=== PATIENT | male | born 1935 | race Caucasian/White ===

== ENCOUNTER 2017-06-04 14:16 | Inpatient (IN) | payer OTHER ==
[~2017-06-04] VITALS: Ht 180.3 cm; Wt 104.4 kg
--- NOTE | ~2017-06-04 | P ---
[facility] [place] [address] PROCEDURE REPORT Name: TANVIRMERLENECAPRI Garrett Room #: 431-P [facility] IN M.R.#: [id number] Admission: 06/04/17 Attend Phys: Elba Tamayo Discharge: 06/11/17 Date of : 35 Report #: [id number] THIS REPORT FOR: //name// CC: Kvng Rodriguez MD DATE OF SERVICE: 06/07/2017 PROCEDURE PERFORMED: ERCP with sphincterotomy and stone removal. HISTORY OF PRESENT ILLNESS: The patient is an 82-year-old male who presents with nausea, vomiting, abdominal pain, elevated liver function tests. He was diagnosed with acute pancreatitis with lipase of 6156 on 06/04/2017. His bilirubin was a max of 6.6, today is 4.8. He underwent an ultrasound of the abdomen initially on 06/04/2017, which showed multiple gallstones and debris within the gallbladder. He then underwent a CT scan of the abdomen and pelvis on 06/06/2017, which showed cholelithiasis with choledocholithiasis and associated pancreatitis. There is no intrahepatic or extrahepatic bile duct dilation identified, 2 cm pseudocyst along the anterior aspect of the junction of the body and tail of the pancreas. Plan is for ERCP. DESCRIPTION OF PROCEDURE: The risks and benefits of the procedure were explained to the patient, those risks including but not limited to bleeding, perforation, the risk of sedation as well as potential risk for post-ERCP pancreatitis. He understood these risks and gave informed consent. The procedure was performed under general anesthesia in the interventional radiology suite. The patient was given 1 gram of Ancef prior to the procedure as well as 50 mg indomethacin suppository rectally. Next, using a standard Onarborinon side-viewing ERCP scope, the scope was placed in the patient's mouth and advanced under direct vision through the esophagus, stomach and into the second portion of the duodenum. The major papilla was identified which was normal in appearance. There was evidence of bile drainage. Next, using a Jose-Hashable 0.025 dome-tipped catheter, the common bile duct was cannulated without difficulty and a cholangiogram was obtained. There were several filling defects noted consistent with choledocholithiasis. Common bile duct is minimally dilated. Intrahepatic ducts were normal. The cystic duct did fill. At this point, a guidewire was advanced into the anterior hepatic ducts and a sphincterotomy was performed without difficulty. Next, the catheter was removed and a balloon catheter was advanced over the guidewire and several balloon sweeps were then performed. A total of 4 dark black stones were removed. Further sweeps revealed no further stones. At this point, a balloon occlusion cholangiogram was obtained. No further filling defects were noted. The scope was then withdrawn and the procedure terminated. The patient tolerated the procedure well. [address] [address] PROCEDURE REPORT Name: CAPRI ZAMORANO Room #: 431-P DIS IN M.R.#: [id number] Admission: 06/04/17 Attend Phys: Elba Tamayo Discharge: 06/11/17 Date of : 35 Report #: [id number] IMPRESSION: 1. Choledocholithiasis, status post sphincterotomy with removal for stones today. 2. Normal intrahepatics. RECOMMENDATIONS: 1. Observe the patient post-procedure. 2. Clear liquids tonight, then n.p.o. after midnight. The patient is scheduled for laparoscopic cholecystectomy tomorrow. Thank you for allowing me to participate in his care. <ELECTRONICALLY SIGNED> By: Kvng Hoyos MD 07/10/17 1234 1742 1822 Kvng Hoyos MD /nt
--- NOTE | ~2017-06-04 | S ---
[facility] [place] [place] [address] SURGICAL PATH RPT PROCEDURE Name: CAPRI ISABEL Room #: 431-P DIS IN M.R.#: [id number] Admission: 06/04/17 Date of : 35 Discharge: 06/11/17 Report #: [id number] Path Case #: [id number] PATHOLOGY REPORT COLLECTION DATE: 06/08/2017 RECEIVED DATE: 06/09/2017 SUBMITTING PHYS: Dr. Musa Mehta OTHER PHYS: Dr. Elba Rodriguez SPECIMEN(S) RECEIVED: A.Gallbladder * * * * * * * * * * * * FINAL DIAGNOSIS: Gallbladder, cholecystectomy: - Moderate acute and chronic cholecystitis. - Cholelithiasis. PATHOLOGIST: Sapphire Quiroz M.D. REPORT ELECTRONICALLY SIGNED BY: Sapphire Quiroz M.D. DATE/TIME: 06/12/2017 14:57 * * * * * * * * * * * * GROSS PATHOLOGY: Received in formalin labeled "Capri Isabel, gallbladder," is a 5.5 x 2.3 x 2.2 cm, previously opened and torn gallbladder with white to green and ragged serosal surfaces. Opening the gallbladder reveals silverman to brown velvety mucosa and an average wall thickness of 0.2 cm. Calculi are present, dark green, friable and range in size from 0.1 to 0.8 cm in maximum dimensions. No masses are noted grossly. Tire Mechanic sections from the body and fundus are submitted along with the proximal margin in cassette A1. (JEFFERY; 06/11/2017) CLINICAL HISTORY: Obstructive jaundice, pancreatitis INITIAL CPT CODE(S): A; 71773 Professional services performed by [facility] at [facility] [address] , [place] [address] Technical services performed by [facility] at [address] [place] [address] [address] [place] [address] SURGICAL PATH RPT PROCEDURE Name: CAPRI ISABEL Room #: 431-P DIS IN M.R.#: [id number] Admission: 06/04/17 Date of : 35 Discharge: 06/11/17 Report #: [id number] Path Case #: [id number] [place] [address]. Dr. Rodney Trevizo [facility] [id number] [address] PHONE: [phone] DIRECTOR: Edmundo Paul M.D. * * * END OF REPORT * * *
--- NOTE | ~2017-06-04 | EKG ---
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
--- NOTE | ~2017-06-04 | HC ---
[facility] [place] [address] CONSULTATION Name: CAPRI ZAMORANO Room #: 431-P [facility] IN ..#: [id number] Admission: 06/04/17 Attend Phys: Elba Tamayo Discharge: 06/11/17 Date of : 35 Report #: [id number] THIS REPORT FOR: //name// CC: Elba Rodriguez DATE OF SERVICE: 06/05/2017 DATE OF ADMISSION: 06/04/2017 DATE OF CONSULTATION: 06/05/2017 HISTORY OF PRESENT ILLNESS: I have been asked to evaluate this 82-year-old male who presented to the Emergency Department complaining of abdominal pain that began approximately 3 days prior to admission. The pain was intense. The patient had an episode of vomiting, which gave him some temporary relief. He described his abdominal pain as feeling full and radiating into his back. The patient also was reported by his to have a temperature of 101 degrees Fahrenheit. The patient was unable to see his urologist for a few weeks to the point and was advised to come to the Emergency Department. The patient complained of the abdominal pain associated with the pain radiating into his back. The patient had worsening of his pain with drinking of fluids. His past medical history is consistent with urological consultation and follow up by . The patient has had an appendectomy. He has had knee replacement approximately one year ago, he has had atrial fibrillation, currently on Pradaxa from Dr. Dariel Mak. ALLERGIES: No known drug allergies. MEDICATIONS: Were multiple. Coreg, Pradaxa, Lanoxin, Zocor, Flomax, Demadex, Mobic, potassium chloride, Prilosec and Nova as well as Lasix. PAST SURGICAL HISTORY: As reported, ankle fracture repair, hernia repair x 2 and his appendectomy. PAST MEDICAL HISTORY: Medical illnesses included hypertension, arthritis, hypercholesterolemia, and bursitis. SOCIAL HISTORY: and lives with his , does not use tobacco, alcohol use occasional and weekly basis. REVIEW OF SYSTEMS: His 10 point review of systems is noncontributory except for the change in gastrointestinal function. PHYSICAL EXAMINATION: GENERAL: Reveals a patient who is alert, cooperative, mild distress. [address] [address] CONSULTATION Name: CAPRI ZAMORANO Room #: 431-P [facility] IN M.R.#: [id number] Admission: 06/04/17 Attend Phys: Elba Tamayo Discharge: 06/11/17 Date of : 35 Report #: [id number] HEENT: No scleral icterus is noted. Pupils reactive to light and accomodation. CARDIOVASCULAR: Regular rate and rhythm. LUNGS: Clear to bases bilaterally. ABDOMEN: Mild tenderness in the epigastrium. No palpable masses. NEUROLOGIC: He is oriented x 3, bilateral motor symmetry. LABORATORY DATA: Review of the patient's laboratory demonstrates elevation of the patient's total bilirubin. His lipase is elevated. Liver function tests are also elevated. His ultrasound is consistent with thickened gallbladder wall and multiple stones. DIAGNOSTIC IMPRESSION: 1. Acute cholecystitis with cholelithiasis and possible choledocholithiasis. I would recommend CT scan to evaluate the extrahepatic bile ducts and pancreas since the patient has an AICD device present and cannot tolerate and MRI. We will follow him with you. Thank you for allowing us to participate in his care. <ELECTRONICALLY SIGNED> By: Musa Mehta MD, FACS 06/12/17 0802 1438 1909 Musa Mehta MD, FACS /nt
--- NOTE | ~2017-06-04 | O ---
[facility] [place] [place] [address] OPERATIVE REPORT Name: CAPRI ZAMORANO Garrett Room #: 431-P [facility] IN M.R.#: [id number] Admission: 06/04/17 Attend Phys: Elba Tamayo Discharge: Date of : 35 Report #: [id number] THIS REPORT FOR: //name// CC: Elba Rodriguez MD DATE OF SERVICE: 06/08/2017 PREOPERATIVE DIAGNOSES: Acute cholecystitis with cholelithiasis, biliary pancreatitis and choledocholithiasis. POSTOPERATIVE DIAGNOSES: Acute cholecystitis with cholelithiasis, biliary pancreatitis and choledocholithiasis. OPERATIVE PROCEDURES: Laparoscopic cholecystectomy with intraoperative cholangiogram and irrigation and flushing of common bile duct. SURGEON: Musa Mehta MD. MOTH PROOFER: Rodney Trevizo DO. SECOND SERVICES ACCOUNT MANAGER: Pat Diez MS4. INDICATIONS: An 82-year-old male who presented with abdominal pain which was diagnosed as biliary pancreatitis. The patient was found by CT scan to have common duct stones. He underwent a satisfactory ERCP and now has been cleared for definitive laparoscopic cholecystectomy with intraoperative cholangiogram. The biliary pancreatitis has resolved. DESCRIPTION OF PROCEDURE: The patient had a thorough discussion of the procedure, benefits and risks. He gave informed consent to proceed. He was on an antibiotic regimen. He was brought to the operating room suite and had satisfactory induction of general endotracheal anesthesia. His AICD had a magnet placed over it during the procedure. Sterile prep and paint of the entire abdomen was performed. After draping was completed, an appropriate timeout was then performed. A 0.5% plain Naropin was utilized at the infraumbilical port site. Open dissection at the infraumbilical port site was performed down to the fascia. Fingertip introduction was performed. Under an open procedure, the 12-mm Uche trocar was then inserted. The balloon was inflated. Pneumoperitoneum was established. The upper 5-mm trocar port and 2 lateral 5-mm trocar ports were then placed under direct vision. The gallbladder was visualized. There were omental adhesions to the inferior aspect of the gallbladder. These were taken down with Sonicision. Dissection was performed in the region of the cystic duct triangle. The cystic duct triangle was clearly delineated. The cystic duct was milked in a retrograde manner. Two clips were [address] [address] OPERATIVE REPORT Name: CAPRI ZAMORANO Room #: 431-P [facility] IN M.R.#: [id number] Admission: 06/04/17 Attend Phys: Elba Tamayo Discharge: Date of : 35 Report #: [id number] placed toward the gallbladder. A cystotomy was performed and the cystic duct was milked in a retrograde manner again. The taut catheter was then inserted into the cystic duct and an intraoperative cholangiogram was performed, demonstrating, after Glucagon was given, free flow of contrast into the duodenum. No filling defects were noted. There was good visualization of the proximal hepatic bile ducts. Irrigation and flushing with saline was performed after the Glucagon was administered. The contrast was evacuated from the biliary ductal system. The taut catheter was removed and a 0 PDS Endoloop was then placed around the cystic duct for control after transection had been completed. Three clips were then placed distal to the Endoloop for visualization and delineation. The cystic artery was identified and doubly clipped and ligated proximally. It was divided with the Sonicision. The gallbladder was dissected from the gallbladder bed. It was tightly adherent to the liver bed. After the gallbladder was resected, demonstrating multiple small bilirubinate stones, it was placed into an Endobag and removed from the peritoneal cavity. An 0 PDS suture was placed in a [id number] fashion at the infraumbilical port site. The port was again introduced and the patient flattened and copious irrigation with saline was performed. Surgicel was placed in the gallbladder bed after hemostasis had been accomplished with the electrocautery. Hemostasis seemed to be complete. A 15-Czech DIEUDONNE drain was brought out from the lateral port site. Smitha was sprayed into the gallbladder bed. All irrigation had been evacuated. Final inspection was completed. The drain was in satisfactory position. The 5-mm trocar ports were removed under direct vision. The 12-mm trocar port at the infraumbilical position was then removed after pneumoperitoneum had been evacuated. The 0 PDS suture was ligated in place. The drain was sutured in place with 2-0 nylon. Skin margins were approximated with subcuticular 4-0 Monocryl. The estimated blood loss for the entire procedure was less than 25 mL. The patient tolerated the procedure well and returned to the recovery room in stable and satisfactory condition. <ELECTRONICALLY SIGNED> By: Musa Mehta MD, FACS 06/11/17 1439 1306 1357 Musa Mehta MD, FACS /nt
[~2017-06-04 14:16] MED LIST: DICLOFENAC SODI75 M1 PO; MISOPROSTOL 2200 MC1 PO; MULTIVITAMINS PO; NORCO 5-325 TA1 EACH PO; OCUVITE TABLET1 EAC1 PO; PRILOSEC 20 MG20 MG PO; TERAZOSIN; VERAPAMIL HCL120 M2 PO; VICOPROFEN 2001 EACH PO; ZOCOR 20 MG TAB20 M1 PO
[2017-06-04 14:17] VITALS: BP 152/74
[2017-06-04 15:15] LABS: HEMATOCRIT 43.5 % (42.0-52.0); HEMOGLOBIN 14.8 gm/dL (14.0-18.0); MCH 29.8 pg (26.0-34.0); MCHC 34.1 g/dL (28.0-37.0); MCV 87.4 fL (80.0-100.0); PLATELET COUNT 150 thou/uL (150-400); RBC 4.98 mil/uL (4.50-6.00); RDW 15.3 % (10.5-14.5); WBC 11.7 thou/uL (4.0-11.0)
[2017-06-04 15:17] LABS: MANUAL DIFF YES
[2017-06-04 15:25] LABS: APTT 35.4 Seconds (24.5-32.8); INR 1.2; PROTIME 11.8 Seconds (9.3-11.4)
[2017-06-04 15:29] LABS: CALCIUM 8.9 mg/dL (8.5-10.1); CREATININE 1.3 mg/dL (0.7-1.3); POTASSIUM 3.7 mmol/L (3.5-5.1)
[2017-06-04 15:36] LABS: ALBUMIN 3.3 g/dL (3.4-5.0); DIGOXIN 1.3 ng/mL (0.9-2.0); DIRECT BILIRUBIN 3.9 mg/dL (<0.1-0.3); TOTAL BILIRUBIN 5.1 mg/dL (<0.1-1.0); TOTAL PROTEIN 7.3 g/dL (6.4-8.2)
[2017-06-04 15:38] LABS: URINE BILIRUBIN NEGATIVE (Negative); URINE BLOOD NEGATIVE (Negative); URINE COLOR YELLOW; URINE GLUCOSE-RANDOM* NEGATIVE (Negative); URINE KETONES NEGATIVE (Negative); URINE LEUKOCYTES-REFLEX NEGATIVE (Negative); URINE PROTEIN (DIPSTICK) NEGATIVE (Negative)
[2017-06-04 15:59] LABS: ABSOLUTE NEUTROPHILS 9.9 thou/uL (1.4-8.2); TOTAL CELL COUNT 100
[2017-06-04] MEDS ORDERED: CARVEDILOL6.25 MG PO (16:26)
[2017-06-04] MEDS ORDERED: PRADAXA150 MG PO (16:26)
[2017-06-04] MEDS ORDERED: DIGOXIN250 MCG PO (16:27)
[2017-06-04] MEDS ORDERED: SIMVASTATIN40 MG PO (16:27)
[2017-06-04] MEDS ORDERED: MOBIC7.5 MG PO (16:28)
[2017-06-04] MEDS ORDERED: FLOMAX0.4 MG PO (16:29)
[2017-06-04] MEDS ORDERED: DEMADEX20 MG PO (16:30)
[2017-06-04] MEDS ORDERED: KLOR-CON M2020 MEQ PO (16:32)
[2017-06-04 17:47] VITALS: BP 140/69
[2017-06-04 17:48] VITALS: BP 140/69
[2017-06-04 18:20] VITALS: BP 146/84
[2017-06-04 20:01] VITALS: BP 127/77
[2017-06-04 22:58] VITALS: BP 153/86
[2017-06-05 04:33] LABS: HEMATOCRIT 38.3 % (42.0-52.0); HEMOGLOBIN 13.1 gm/dL (14.0-18.0); MCH 29.9 pg (26.0-34.0); MCHC 34.2 g/dL (28.0-37.0); MCV 87.6 fL (80.0-100.0); RBC 4.37 mil/uL (4.50-6.00); WBC 8.5 thou/uL (4.0-11.0)
[2017-06-05 04:43] LABS: ALBUMIN 2.6 g/dL (3.4-5.0); CALCIUM 8.3 mg/dL (8.5-10.1); CREATININE 1.4 mg/dL (0.7-1.3); TOTAL BILIRUBIN 6.6 mg/dL (<0.1-1.0); TOTAL PROTEIN 6.2 g/dL (6.4-8.2)
[2017-06-05 04:44] LABS: POTASSIUM 2.9 mmol/L (3.5-5.1)
[2017-06-05 08:59] VITALS: BP 147/92
[2017-06-05 11:36] VITALS: BP 144/84
[2017-06-05 15:00] VITALS: BP 149/90
[2017-06-05 19:28] VITALS: BP 159/90
[2017-06-06 03:43] LABS: HEMATOCRIT 36.8 % (42.0-52.0); HEMOGLOBIN 12.5 gm/dL (14.0-18.0); MCH 29.9 pg (26.0-34.0); MCHC 34.1 g/dL (28.0-37.0); MCV 87.6 fL (80.0-100.0); RBC 4.2 mil/uL (4.50-6.00); RDW 15.2 % (10.5-14.5); WBC 7.7 thou/uL (4.0-11.0)
[2017-06-06 04:03] LABS: ALBUMIN 2.4 g/dL (3.4-5.0); CALCIUM 8.4 mg/dL (8.5-10.1); CREATININE 1.2 mg/dL (0.7-1.3); MAGNESIUM 1.8 mg/dL (1.8-2.4); POTASSIUM 3.3 mmol/L (3.5-5.1); TOTAL BILIRUBIN 6.6 mg/dL (<0.1-1.0)
[2017-06-06 04:12] VITALS: BP 169/89
[2017-06-06 04:17] LABS: TOTAL PROTEIN 6.1 g/dL (6.4-8.2)
[2017-06-06] MEDS ORDERED: LISINOPRIL20 MG PO (05:03)
[2017-06-06 07:42] VITALS: BP 175/100
[2017-06-06 20:13] VITALS: BP 159/93
[2017-06-07 03:55] VITALS: BP 179/103
[2017-06-07 06:17] LABS: ALBUMIN 2.6 g/dL (3.4-5.0); CALCIUM 8.7 mg/dL (8.5-10.1); CREATININE 1.1 mg/dL (0.7-1.3); MAGNESIUM 1.8 mg/dL (1.8-2.4); POTASSIUM 3.6 mmol/L (3.5-5.1); TOTAL BILIRUBIN 4.8 mg/dL (<0.1-1.0)
[2017-06-07 06:37] LABS: TOTAL PROTEIN 6.6 g/dL (6.4-8.2)
[2017-06-07 07:57] VITALS: BP 170/95
[2017-06-07 19:21] VITALS: BP 179/105
[2017-06-07 19:25] VITALS: BP 179/105
[2017-06-07 21:50] VITALS: BP 149/84
[2017-06-07 23:15] VITALS: BP 163/84
[2017-06-08] VITALS (8 sets, daily range): BP systolic 134–178; BP diastolic 79–101
[2017-06-08 05:34] LABS: HEMATOCRIT 36.9 % (42.0-52.0); HEMOGLOBIN 12.2 gm/dL (14.0-18.0); MCH 29.7 pg (26.0-34.0); MCHC 33.2 g/dL (28.0-37.0); MCV 89.5 fL (80.0-100.0); RBC 4.12 mil/uL (4.50-6.00); RDW 15.2 % (10.5-14.5); WBC 6.6 thou/uL (4.0-11.0)
[2017-06-08 06:16] LABS: ALBUMIN 2.5 g/dL (3.4-5.0); CALCIUM 8.6 mg/dL (8.5-10.1); POTASSIUM 3.3 mmol/L (3.5-5.1); TOTAL BILIRUBIN 3.5 mg/dL (<0.1-1.0)
[2017-06-09 04:02] LABS: ALBUMIN 2.4 g/dL (3.4-5.0); CALCIUM 8.1 mg/dL (8.5-10.1); POTASSIUM 3.4 mmol/L (3.5-5.1); TOTAL BILIRUBIN 2.9 mg/dL (<0.1-1.0); TOTAL PROTEIN 6.2 g/dL (6.4-8.2)
[2017-06-09 04:03] LABS: HEMATOCRIT 37.4 % (42.0-52.0); HEMOGLOBIN 12.5 gm/dL (14.0-18.0); MCH 29.8 pg (26.0-34.0); MCHC 33.4 g/dL (28.0-37.0); MCV 89.4 fL (80.0-100.0); RBC 4.18 mil/uL (4.50-6.00); RDW 15.4 % (10.5-14.5); WBC 9.5 thou/uL (4.0-11.0)
[2017-06-09 04:05] VITALS: BP 163/95
[2017-06-09 08:01] VITALS: BP 150/83
[2017-06-09] MEDS ORDERED: HYDROCODONE-APA1 TA1 PO (09:21)
[2017-06-09 16:09] VITALS: BP 150/72
[2017-06-09 20:25] VITALS: BP 131/73
[2017-06-10 03:54] LABS: HEMOGLOBIN 12.4 gm/dL (14.0-18.0); MCHC 33.6 g/dL (28.0-37.0); MCV 89.1 fL (80.0-100.0); RBC 4.15 mil/uL (4.50-6.00); WBC 10.9 thou/uL (4.0-11.0)
[2017-06-10 03:59] LABS: ALBUMIN 2.3 g/dL (3.4-5.0); DIRECT BILIRUBIN 1.4 mg/dL (<0.1-0.3); TOTAL PROTEIN 6.1 g/dL (6.4-8.2)
[2017-06-10 04:22] VITALS: BP 157/78
[2017-06-10 07:50] VITALS: BP 151/78
[2017-06-10 15:42] VITALS: BP 159/81
[2017-06-10 21:00] VITALS: BP 142/77
[2017-06-10 23:56] VITALS: BP 147/76
[2017-06-11 04:33] VITALS: BP 155/84
[2017-06-11 05:55] LABS: ALBUMIN 2.2 g/dL (3.4-5.0); PHOSPHORUS 2.3 mg/dL (2.5-4.9); POTASSIUM 3.2 mmol/L (3.5-5.1)
[2017-06-11 08:34] VITALS: BP 170/87
[2017-06-11 10:47] VITALS: BP 170/87
[2017-06-11 14:54] VITALS: BP 170/87
== END 2017-06-11 16:39 | disposition home health service (06) | DRG 417 ==
LOC: ER 14:16 → EROBS 16:38 → 2N 16:38 → 4E 06-06 11:27
PROVIDERS: Emergency Medicine; Hospitalist; Internal Medicine Gastroenterology; Nurse Practitioner Adult Health; Specialist; Surgery
PROC: 0FC98ZZ Extirpation of Matter from Common Bile Duct, Via Natural or Artificial Opening Endoscopic (ICD-10-PCS; 2017-06-07)
PROC: 0FT44ZZ Resection of Gallbladder, Percutaneous Endoscopic Approach (ICD-10-PCS; principal; 2017-06-08)
PROC: 0WQF4ZZ Repair Abdominal Wall, Percutaneous Endoscopic Approach (ICD-10-PCS; 2017-06-08)
PROC: BF101ZZ Fluoroscopy of Bile Ducts using Low Osmolar Contrast (ICD-10-PCS; 2017-06-08)
DX: K80.42 Calculus of bile duct with acute cholecystitis without obstruction (principal); K85.90 Acute pancreatitis without necrosis or infection, unspecified; K83.1 Obstruction of bile duct; E43 Unspecified severe protein-calorie malnutrition; I48.92 Unspecified atrial flutter; I42.9 Cardiomyopathy, unspecified; I13.0 Hypertensive heart and chronic kidney disease with heart failure and stage 1 through stage 4 chronic kidney disease, or unspecified chronic kidney disease; K42.0 Umbilical hernia with obstruction, without gangrene; N40.0 Benign prostatic hyperplasia without lower urinary tract symptoms; M19.90 Unspecified osteoarthritis, unspecified site; E78.00 Pure hypercholesterolemia, unspecified; E80.6 Other disorders of bilirubin metabolism; E87.6 Hypokalemia; E87.5 Hyperkalemia; N28.1 Cyst of kidney, acquired; I50.9 Heart failure, unspecified; N18.9 Chronic kidney disease, unspecified; Z87.81 Personal history of (healed) traumatic fracture; Z98.41 Cataract extraction status, right eye; Z79.899 Other long term (current) drug therapy; Z90.49 Acquired absence of other specified parts of digestive tract; Z95.0 Presence of cardiac pacemaker; Z68.32 Body mass index [BMI] 32.0-32.9, adult
CPT/HCPCS: 10081; 10783; 50010; 50101; 50249; 50331; 50411; 50555; 50900; 50962; 51297; 51489; 51975; 52265; 52266; 52287; 53307; 53314; 54022; 54118; 55245; 55317; 56462; 56525; 56526; 56639; 62110; 62900; 70005

== ENCOUNTER → 2019-01-14 | Outpatient (CLI) | payer OTHER ==
[~2019-01-14] MED LIST changes: +CARVEDILOL6.25 MG PO; +DEMADEX20 MG PO; +DIGOXIN250 MCG PO; +FLOMAX0.4 MG PO; +HYDROCODONE-APA1 TA1 PO; +KLOR-CON M2020 MEQ PO; +LISINOPRIL20 MG PO; +MOBIC7.5 MG PO; +PRADAXA150 MG PO; +SIMVASTATIN40 MG PO
== END ==
LOC: RAD 14:58
DX: I51.7 Cardiomegaly (principal); R05 Cough

== ENCOUNTER 2019-01-15 11:46 | Inpatient (IN) | payer OTHER ==
[~2019-01-15] VITALS: Ht 177.8 cm; Wt 106.0 kg
[2019-01-15 11:47] VITALS: BP 158/92
[2019-01-15 12:45] LABS: ABSOLUTE NEUTROPHILS 6.1 thou/uL (1.4-8.2); BASOPHILS 0.2 % (0.0-2.0); HEMATOCRIT 42.9 % (42.0-52.0); HEMOGLOBIN 14.6 gm/dL (14.0-18.0); LYMPHOCYTES 6.9 % (24.0-44.0); MCH 30.6 pg (26.0-34.0); MONOCYTES 6.7 % (1.0-8.0); POLYS 86.2 % (36.0-66.0); RBC 4.76 mil/uL (4.50-6.00); RDW 14.8 % (10.5-14.5)
[2019-01-15 12:48] LABS: ANION GAP 10 mmol/L (7-16); BUN 20 mg/dL (7-18); CALCIUM 8.4 mg/dL (8.5-10.1); CHLORIDE 99 mmol/L (98-107); CO2 27 mmol/L (21-32); CREATININE 1.5 mg/dL (0.7-1.3); GLUCOSE 130 mg/dL (74-106); POTASSIUM 3.6 mmol/L (3.5-5.1); SODIUM 136 mmol/L (136-145)
[2019-01-15 12:56] LABS: ALBUMIN 3.5 g/dL (3.4-5.0); SGOT 30 U/L (15-37); SGPT 20 U/L (30-65); TOTAL BILIRUBIN 1.1 mg/dL (<0.1-1.0); TOTAL PROTEIN 7.2 g/dL (6.4-8.2); TROPONIN-I <0.06 ng/mL (<0.06)
[2019-01-15 12:58] LABS: URINE BILIRUBIN NEGATIVE (Negative); URINE BLOOD 1+ (Negative); URINE CLARITY CLEAR; URINE COLOR YELLOW; URINE GLUCOSE-RANDOM* NEGATIVE (Negative); URINE KETONES NEGATIVE (Negative); URINE LEUKOCYTES-REFLEX NEGATIVE (Negative); URINE NITRITE-REFLEX NEGATIVE (Negative); URINE PROTEIN (DIPSTICK) NEGATIVE (Negative); URINE UROBILINOGEN 0.2 E.U./dl (0.2-1.0)
[2019-01-15 13:07] LABS: BACTERIA-REFLEX None Seen /HPF (None Seen); CASTS None Seen /LPF (None Seen); CRYSTALS None Seen /LPF (None Seen); MUCUS 0-3 Light strn/LPF (None Seen); SQUAMOUS 0-3 Few /LPF (0-3)
[2019-01-15 13:08] LABS: URINE RBC 0-2 Rare /HPF (0-2); URINE WBC-REFLEX None Seen /HPF (0-5)
[2019-01-15 13:15] LABS: PLATELET COUNT 123 thou/uL (150-400)
--- NOTE | 2019-01-15 17:19 | EKG ---
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 : 1935 Requested By: Emily Evans Order Number: [id number] MD: Uday Mayfield Measurements Intervals Finger Rate: 67 P: OK: QRS: 150 QRSD: 161 T: -4 QT: 422 QTc: 446 Interpretive Statements Afib/flutter and ventricular-paced rhythm No further analysis attempted due to paced rhythm Compared to ECG 06/04/2017 14:52:45 No significant changes Electronically Signed On 01-15-2019 17:19:34 CDT by Uday Mayfield [email or web address] ��������������������������������������������� <ELECTRONICALLY SIGNED> ���������������������������������������� By: Uday Mayfield MD, [facility] ��������������������������������������������� 01/15/19 1719 1244 1244 Uday Mayfield MD, [facility] /EPI
[2019-01-15 18:40] VITALS: BP 162/77
--- NOTE | 2019-01-15 19:19 | NUR ---
INPATIENT NURSE STATES THAT BED IS NOT READY WILL CALL WHEN CLEAN REPORTED TO NIELS IVORY
[2019-01-15 21:45] VITALS: BP 165/93
[2019-01-15 21:58] VITALS: BP 165/93
[2019-01-16 05:44] LABS: ABSOLUTE NEUTROPHILS 4.3 thou/uL (1.4-8.2); BASOPHILS 0.1 % (0.0-2.0); HEMATOCRIT 43.8 % (42.0-52.0); HEMOGLOBIN 14.9 gm/dL (14.0-18.0); LYMPHOCYTES 9.2 % (24.0-44.0); MCH 30.5 pg (26.0-34.0); MCHC 33.9 g/dL (28.0-37.0); MCV 89.9 fL (80.0-100.0); MONOCYTES 2.6 % (1.0-8.0); PLATELET COUNT 102 thou/uL (150-400); POLYS 88.1 % (36.0-66.0); RBC 4.87 mil/uL (4.50-6.00); RDW 15.3 % (10.5-14.5); WBC 4.9 thou/uL (4.0-11.0)
[2019-01-16 05:55] LABS: CALCIUM 8.4 mg/dL (8.5-10.1); CREATININE 1.3 mg/dL (0.7-1.3); MAGNESIUM 2.1 mg/dL (1.8-2.4); POTASSIUM 3.6 mmol/L (3.5-5.1)
[2019-01-16 08:34] VITALS: BP 167/93
--- NOTE | 2019-01-16 14:00 | NUR ---
Met with patient who admits with weakness, bronchitis. 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 Resides in independent home, cond with all needs on one level. Patient uses a cane in community. Patient reports in hospital at [facility]. She will dc to skilled care. She has hx of lung cancer. Patient reports he was unable to get up from his chair and called . She called dtr who called 911. Patient reports it may be stress related as his has been in/out of hospital. Patient anticipates dc home and possible need for HH care. No preference for an agency and agreeable to [facility]. casemgt following.
--- NOTE | 2019-01-16 14:19 | NUR ---
ORDERS RECIEVED FOR EVAL AND TREAT. OBSERVED Pt STAND AND AMBULATE TO BATHROOM WITH NURSING WITHOUT DIFFICULTY. SPOKE WITH Pt WHO STATES HE DOES NOT FEEL WEAK OR OFF BALANCE. DECLINING A FORMAL P.T. EVAL BUT APPEARS SAFE FOR HOME WHEN MEDICALLY CLEAR
[2019-01-16 16:27] VITALS: BP 152/80
--- NOTE | 2019-01-16 17:13 | NUR ---
Assessment completed.vss.Pt in and out of bed with sba.Meds given as ordered and pt diuressis.Pt took shower with minimal assist.Breathing treament given for bronchitis.Pt up in chair resting at present without c/o.Will continue to monitor.
[2019-01-16 19:38] VITALS: BP 165/82
--- NOTE | 2019-01-17 03:28 | NUR ---
Assumed care of pt at 1900. Pt alert and oriented x4. No c/o pain. Assessment completed. Possible D/C to home in am. Call light within reach.
[2019-01-17 04:37] VITALS: BP 175/97
[2019-01-17 07:52] VITALS: BP 186/90
[2019-01-17] MEDS ORDERED: PREDNISONE 20 M20 M1 PO (13:36)
[2019-01-17 13:52] VITALS: BP 186/90
[2019-01-17 14:27] VITALS: BP 186/90
--- NOTE | 2019-01-17 14:29 | NUR ---
PT DISCHARGED AT THIS TIME. DISCHARGE PAPERS GONE OVER WITH PATIENT SIGNED AND COPY IN CHARGE. IV ACSESS DCD RX GIVEN TO PATIENT. ALL BELONGINGS PACKED AND SENT WITH PATIENT.
[2019-01-18 22:05] LABS: ADENOVIRUS Negative (Negative); INFLUENZA A Negative (Negative); INFLUENZA B Negative (Negative); METAPNEUMOVIRUS Positive (Negative); PARAINFLUENZA 1 Negative (Negative); PARAINFLUENZA 2 Negative (Negative); PARAINFLUENZA 3 Negative (Negative); RHINOVIRUS Negative (Negative); RSV A Negative (Negative); RSV B Negative (Negative)
== END 2019-01-17 14:39 | disposition home or self-care (01) | DRG 193 ==
LOC: ER 11:46 → 4E 14:39 → EROBS 14:39 → 4E 21:45 → ENTRNSPT 01-17 14:19 → EDTRNSPTSTS 01-17 14:21 → 4E 01-17 14:39
PROVIDERS: Nurse Practitioner Family; ADMIT Internal Medicine
DX: J12.9 Viral pneumonia, unspecified (principal); J96.01 Acute respiratory failure with hypoxia; N17.9 Acute kidney failure, unspecified; I50.32 Chronic diastolic (congestive) heart failure; J20.9 Acute bronchitis, unspecified; M19.90 Unspecified osteoarthritis, unspecified site; I48.2 Chronic atrial fibrillation; K21.9 Gastro-esophageal reflux disease without esophagitis; I11.0 Hypertensive heart disease with heart failure; I25.10 Atherosclerotic heart disease of native coronary artery without angina pectoris; N40.0 Benign prostatic hyperplasia without lower urinary tract symptoms; Z95.0 Presence of cardiac pacemaker; Z98.41 Cataract extraction status, right eye; Z79.01 Long term (current) use of anticoagulants; Z79.899 Other long term (current) drug therapy
CPT/HCPCS: 10084

== ENCOUNTER → 2019-03-18 | Outpatient (CLI) | payer OTHER ==
[~2019-03-18] MED LIST changes: +PREDNISONE 20 M20 M1 PO
--- NOTE | 2019-03-18 11:32 | 2DMMODE ---
[facility] [place] [address] 2 D/M-MODE ECHOCARDIOGRAM Name: CAPRI ZAMORANO [id number] ������������� Admission: 03/18/19 ������������� Attend Phys: Dariel Mak Discharge: ��� ������������� ��� Date of : 35 Date of Service: 03/18/19 1131 �� Report #: [id number] �������� ��������������������������������������������[id number] THIS REPORT FOR: //name// APPROVED REPORT Study performed: 03/18/2019 10:45:32 EXAM: Comprehensive 2D, Doppler, and color-flow Echocardiogram Patient Location: Out-Patient Status: routine BSA: 2.15 HR: 76 bpm BP: 138/84 mmHg Rhythm: Pacemaker Other Information Study Quality: Good Indications Cardiomyopathy Hx: Afib, ICD. 2D Dimensions RVDd: 41.36 mm IVSd: 11.16 (7-11mm) LVOT Diam: 21.39 (18-24mm) LVDd: 51.77 mm PWd: 11.00 (7-11mm) Ascending Ao: 44.52 (22-36mm) LVDs: 38.95 (25-40mm) Aortic Root: 40.75 mm Volumes Left Atrial Volume (Systole) Single Plane 4CH: 118.68 mL Single Plane 2CH: 105.84 mL LA ESV Index: 55.00 mL/m2 Aortic Valve AoV Peak Lazaro.: 1.59 m/s AO Peak Gr.: 10.07 mmHg LVOT Max P.41 mmHg LVOT Max V: 0.92 m/s RUTHANN Vmax: 2.09 cm2 Mitral Valve MV Decel. Time: 213.52 ms MV E Max Lazaro.: 1.06 m/s [facility] [address] [place] [address] 2 D/M-MODE ECHOCARDIOGRAM Name: CAPRI ZAMORANO Room #: REG [facility]#: [id number] ������������� Admission: 03/18/19 ������������� Attend Phys: Dariel Baipremier healthnnashley Discharge: ��� ������������� ��� Date of : 35 Date of Service: 03/18/19 1131 �� Report #: [id number] �������� ��������������������������������������������[id number] IVRT: 78.43 ms Pulmonary Valve PV Peak Lazaro.: 1.07 m/s PV Peak Gr.: 4.57 mmHg Tricuspid Valve TR Peak Lazaro.: 2.72 m/s RAP Estimate: 5.00 mmHg TR Peak Gr.: 29.52 mmHg PA Pressure: 35.00 mmHg Left Ventricle The left ventricle is normal size. There is normal left ventricular wall thickness. Left ventricular systolic function is normal. LVEF is 55%. This study is not technically sufficient to allow evaluation of the LV diastolic function. Right Ventricle The right ventricle is normal size. The right ventricular systolic function is normal. Device lead is present in the right ventricle. Atria Left atrium is severely dilated. Right atrium is severely dilated. Aortic Valve The Aortic valve is moderately sclerotic but has adequate excursion. Mild aortic regurgitation. Mitral Valve Mitral valve leaflets are thickened. Moderate mitral annular calcification. Mild mitral regurgitation. No evidence of mitral valve stenosis. Tricuspid Valve The tricuspid valve is normal in structure. Mild to moderate tricuspid regurgitation. Estimated PAP is 35mmHg. Pulmonic Valve The pulmonary valve is normal in structure. Trace pulmonic regurgitation. Great Vessels Aortic root is dilated at 4.1cm. 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 IVC is normal in size and collapses >50% with inspiration. [facility] [place] [address] 2 D/M-MODE ECHOCARDIOGRAM Name: CAPRI ZAMORANO Room #: REG [facility]#: [id number] ������������� Admission: 03/18/19 ������������� Attend Phys: Dariel Mak Discharge: ��� ������������� ��� Date of : 35 Date of Service: 03/18/19 1131 �� Report #: [id number] �������� ��������������������������������������������[id number] Pericardium There is no pericardial effusion. <Conclusion> The left ventricle is normal size. There is normal left ventricular wall thickness. Left ventricular systolic function is normal. The right ventricle is normal size. Device lead is present in the right ventricle. Left atrium is severely dilated. Right atrium is severely dilated. The Aortic valve is moderately sclerotic but has adequate excursion. Mild aortic regurgitation. Mitral valve leaflets are thickened. Moderate mitral annular calcification. Mild mitral regurgitation. Mild to moderate tricuspid regurgitation. Estimated PAP is 35mmHg. 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 ��������������������������������������������� <ELECTRONICALLY SIGNED> ���������������������������������������� By: Carlos Muñoz MD ��������������������������������������������� 03/18/19 1131 113 113 Carlos Muñoz MD /INF
== END ==
LOC: CV 10:19
DX: I08.3 Combined rheumatic disorders of mitral, aortic and tricuspid valves (principal); I48.91 Unspecified atrial fibrillation

== ENCOUNTER → 2020-03-16 | Outpatient (CLI) | payer OTHER | LOC: SJCVC 11:17 | PROVIDERS: ATTEND Internal Medicine Cardiovascular Disease | DX: Z45.02 Encounter for adjustment and management of automatic implantable cardiac defibrillator (principal); I48.0 Paroxysmal atrial fibrillation; I48.20 Chronic atrial fibrillation, unspecified; I49.5 Sick sinus syndrome; R94.31 Abnormal electrocardiogram [ECG] [EKG]; I42.8 Other cardiomyopathies; I10 Essential (primary) hypertension; E78.5 Hyperlipidemia, unspecified; K21.9 Gastro-esophageal reflux disease without esophagitis; M15.9 Polyosteoarthritis, unspecified; Z95.810 Presence of automatic (implantable) cardiac defibrillator; Z87.891 Personal history of nicotine dependence; Z79.899 Other long term (current) drug therapy ==

== ENCOUNTER → 2020-03-17 | Outpatient (CLI) | payer OTHER | LOC: SJCVCIMAG 14:53 | DX: I48.91 Unspecified atrial fibrillation (principal); G47.33 Obstructive sleep apnea (adult) (pediatric); Z95.0 Presence of cardiac pacemaker ==

== ENCOUNTER 2020-06-21 16:26 | Inpatient (IN) | payer OTHER ==
[~2020-06-21] VITALS: Ht 177.8 cm; Wt 95.3 kg
--- NOTE | ~2020-06-21 | EMS ---
[address] [address] EMS Patient Care Report Name: CAPRI ZAMORANO Room #: REG FRANTZ Sanches#: [id number] Admission: 06/21/20 Attend Phys: Discharge: Date of : 35 Report #: [id number] THIS REPORT FOR: //name// Report Transmitted: 06/21/2020 16:29 EMS Care Summary [facility] MED-ACT Incident [id number] @ 06/21/2020 15:32 Incident Location [address] [place] [address] Patient CAPRI ZAMORANO Male, 85 Years 1935 Patient Address [address] [place] [address] Patient History Hypertension (HTN),Pacemaker/AICD,Hyperlipidemia,Gastro-Esophageal Reflux Disease (GERD),Enlarged prostate, Patient Allergies No known allergies, Patient Medications Omeprazole, Pradaxa, Simvastatin, Sildenafil, Lisinopril, Klor-Con, Torsemide, Tamsulosin, Chief Complaint back pain Disposition Transported No Lights/[place] Dispatch Reason Back Pain (Non-Traumatic) Transported To [facility] Narrative Arrived to find pt seated in armchair in living room, a&ox4, minor discomfort and in the presence of [facility] personnel[address] [address] EMS Patient Care Report Name: CAPRI ZAMORANO Room #: REG FRANTZ Sanches#: [id number] Admission: 06/21/20 Attend Phys: Discharge: Date of : 35 Report #: [id number] Pt reports he noticed some right lumbar pain that started 1 week ago and does not associate any trauma with it. Pt reports over the last week it has increased gradually. Pt states on Sunday, he was trying to get up from his shower chair and couldn't do to excrutiating pain. Pt reports he has been unable to walk and has had to have his use a towel to lift him out of the chair. Pt reports he has been using a urinal and not been taking his diuretic for two days. Pt denies any cough, fever, sob, radiation of pain down right leg or increased pedal edema. Pt was given pain medications and then assisted to standing with a Gabriele Strap. Pt was able to sit down on the cot and secured in a tolerable position with legs bent. Pt secured with cot straps and taken to MICU for non-emergent transport to [place] as pt requested. Pt reports the pain has decreased slightly. Pt was moved via sheet from cot to hospital bed without incident in room #8. Pt report and transfer of care given to BUSINESS SOLUTION ANALYST. Initial Vitals @16:03P: 72,SpO2: 97,MS Suspected: false @16:14P: 96,SpO2: 96,MS Suspected: false @16:13P: 96,R: 20,BP: 160/104,SpO2: 94, @16:16P: 111,R: 20,BP: 166/121,Pain: 4/10,GCS: 15,SpO2: 95,Revised Trauma: 12, @16:02P: 84,R: 20,BP: 185/111,GCS: 15,SpO2: 96,Revised Trauma: 12, @PTAP: 60,R: 20,BP: 160/109,Pain: 6/10,GCS: 15,SpO2: 98,Revised Trauma: 12, Assessments @16:24MENTAL:Person Oriented,Time Oriented,Place Oriented,Event Oriented,SKIN:HEENT:Head/Face: Other,Neck/Airway: No Abnormalities,LUNG SOUNDS:General: No Abnormalities,ABDOMEN:General: No Abnormalities,PELVIS//GI:No Abnormalities,EXTREMITIES:Left Arm: No Abnormalities,Right Arm: No Abnormalities,Left Leg: No Abnormalities,Right Leg: No Abnormalities,PULSE:Radial: 2+ Normal,NEURO:No Abnormalities, Impression Back Pain Procedures @15:52Fentanyl - 50 Micrograms (mcg) - Intravenous (IV)Response: Improved@15:50Saline Lock 10cc (20 ga) Site: Forearm-LeftResponse: UnchangedSucceeded@16:15Fentanyl - 50 Micrograms (mcg) - Intravenous (IV)Response: Improved Timeline PROJECT ADMINISTRATIVE ASSISTANT,BP: 160/109 M,PULSE: 60,RR: 20 R,SPO2: 98 Ox,ETCO2: ,BG: ,PAIN: 6,GCS: 15, [address] [address] EMS Patient Care Report Name: CAPRI ZAMORANO Room #: REG Verónica#: [id number] Admission: 06/21/20 Attend Phys: Discharge: Date of : 35 Report #: [id number] 15:32,Call Received 15:32,Dispatched 15:32,Psap Call 15:33,En Route 15:43,On Scene 15:44,At Patient 15:50,Saline Lock 10cc 20 ga Site: Forearm-Left,Response: UnchangedSucceeded, 15:52,Fentanyl - 50 Micrograms (mcg) - Intravenous (IV),Response: Improved 16:02,BP: 185/111 M,PULSE: 84,RR: 20 R,SPO2: 96 Ox,ETCO2: ,BG: ,PAIN: ,GCS: 15, 16:03,Depart Scene 16:03,BP: / M,PULSE: 72,RR: R,SPO2: 97 Ox,ETCO2: ,BG: ,PAIN: ,GCS: , 16:13,BP: 160/104 M,PULSE: 96,RR: 20 R,SPO2: 94 Ox,ETCO2: ,BG: ,PAIN: ,GCS: , 16:14,BP: / M,PULSE: 96,RR: R,SPO2: 96 Ox,ETCO2: ,BG: ,PAIN: ,GCS: , 16:15,Fentanyl - 50 Micrograms (mcg) - Intravenous (IV),Response: Improved 16:16,BP: 166/121 M,PULSE: 111,RR: 20 R,SPO2: 95 Ox,ETCO2: ,BG: ,PAIN: 4,GCS: 15, 16:17,At Destination 16:45,Call Closed Disclaimer v1.1 Copyright 2020 [employer] This EMS Care Summary contains data elements from the applicable legal record (which may be displayed differently). It is designed to provide pertinent information for the following purposes: continuity of care, clinical quality, and state data reporting. The complete legal record is available to ED staff and administrators of the receiving hospital in [employer] Patient Tracker. All data is provided "as is."
[~2020-06-21 16:26] MED LIST changes: +NORCO 5-325 TA1 EAC2 PO; -NORCO 5-325 TA1 EACH PO
[2020-06-21 16:28] VITALS: BP 184/93
[2020-06-21 20:22] LABS: BASOPHILS 0.4 % (0.0-2.0); EOSINOPHILS 0.9 % (0.0-3.0); HEMATOCRIT 43.4 % (42.0-52.0); HEMOGLOBIN 14.3 gm/dL (14.0-18.0); LYMPHOCYTES 12.7 % (24.0-44.0); MCH 30.9 pg (26.0-34.0); MCV 93.6 fL (80.0-100.0); MONOCYTES 8.2 % (1.0-8.0); PLATELET COUNT 157 thou/uL (150-400); POLYS 77.8 % (36.0-66.0); RBC 4.64 mil/uL (4.50-6.00); RDW 14.8 % (10.5-14.5)
[2020-06-21 20:28] LABS: CALCIUM 8.7 mg/dL (8.5-10.1); CREATININE 1.1 mg/dL (0.7-1.3); POTASSIUM 4.4 mmol/L (3.5-5.1)
[2020-06-21 20:34] LABS: ALBUMIN 3.2 g/dL (3.4-5.0); TOTAL BILIRUBIN 0.6 mg/dL (0.2-1.0); TOTAL PROTEIN 6.8 g/dL (6.4-8.2)
[2020-06-21 22:04] VITALS: BP 179/89
[2020-06-21 22:30] VITALS: BP 157/88
[2020-06-21 22:40] VITALS: BP 184/91
--- NOTE | 2020-06-22 03:31 | NUR ---
PT WAS ADMITTED TO THE UNIT FROM THE ER IN A STABLE CONDITION.PT DENIED PAIN ON ADMISSION.REDNESS NOTED ON HIS FACE.ADMISSION DONE EXCEPT FOR MED RECONCILIATION.EDEMA TO HIS BLE.PT SLEEPING ON HIS BED AT THIS TIME.FALL PRECAUTIONS IN PLACE,CALL LIGHT WITHIN REACH.
[2020-06-22 04:45] VITALS: BP 173/97
[2020-06-22] MEDS ORDERED: PRADAXA150 MG PO (07:32)
[2020-06-22] MEDS ORDERED: KLOR-CON M2020 MEQ PO (07:34)
[2020-06-22] MEDS ORDERED: B-125000 MC1 PO (07:41)
[2020-06-22 08:30] VITALS: BP 154/84
--- NOTE | 2020-06-22 15:15 | NUR ---
ASSESSMENT: CM REVIEWED CHART AND SPOKE WITH PATIENT AND HIS JUAN. PT IS HERE FOR BACK PAIN/PAIN CONTROL. PT REPORTS THAT HE LIVES AT HOME WITH HIS IN A [place]. PT REPORTS NO STEPS TO ENTER OR ONCE INSIDE. PT STATES THAT HE AMBULATES AT TIMES USING A CANE OR FWW. PT REPORTS HE HAS HAD [facility] IN THE PAST. PT REPORTS THAT HE NORMALLY DOES WELL ON HIS OWN BUT IS IN ALOT OF PAIN. PHYSCIAL THERAPY SAW PATIENT AND RECOMMENDING POSSIBLY HH AT DISCHARGE. CM DISCUSSED WITH PATIENT AND HE WOULD LIKE REFERRAL TO [facility] WHO HE HAS HAD IN THE PAST. CM SENT REFERRAL AND WILL CONTINUE TO FOLLOW TO ASSIST NEEDED.
[2020-06-22 16:45] VITALS: BP 141/72
[2020-06-22 19:31] VITALS: BP 131/79
--- NOTE | 2020-06-22 19:47 | NUR ---
Assumed care of pt at 0700. Pt a&ox4. Up SBA with walker and gait-belt to chair. Home meds restarted. Pain controlled with PO meds. Steroids started. Neurosurgery consulted. Call light within reach. Fall precautions in place. Report given to amanda IVORY.
[2020-06-23] VITALS (7 sets, daily range): BP systolic 94–180; BP diastolic 65–94
--- NOTE | 2020-06-23 03:57 | NUR ---
ASSUMED PT CARE AT 1900.PT C/O HIS HS MEDS BEING SWITCHED AROUND.COLLEGE SCOUTING COORDINATOR ON DUTY NOTIFIED,MED SET PT TAKES IT AT HOME.PT REF TO TAKE HIS HS DOSE OF METHYLPREDNISOLONE.PT STATED THAT HE TOOK A COUPLE ALREADY DURING THE DAY FROM AM SHIFT SO HE DOESN'T FEEL THAT HE SHOULD TAKE IT.PT SLEPING ON HIS BED AT THIS TIME.CALL LIGHT WITHIN REACH.
--- NOTE | 2020-06-23 15:58 | NUR ---
ONGOING ASSESSMENT: CM REVIEWED CHART. [facility] HAS ACCEPTED PATIENT FOR HOME HEALTH WHEN HE IS ABLE TO DISCHARGE. CM SPOKE WITH BEDSIDE RN WHO REPORTS SHE IS UNSURE FAMILY IS COMFORTABLE DISCHARGING TODAY. PHYSCIAL THERAPY SAW PATIENT AND FEEL HE IS ABLE TO GO HOME WITH HOME HEALTH. CM DISCUSSED WITH BEDSIDE RN TO CONTACT PHYSICIAN IF FAMILY DOES NOT FEEL COMFORTABLE. CM WILL CONTINUE TO FOLLOW.
--- NOTE | 2020-06-23 18:36 | NUR ---
PT A&OX4, VSS, 2 PERSON ASSIST WITH AMBULATION, AMBULATED FROM BED TO CHAIR, CONTINENT OF BOWEL AND BLADDER. PT HAD A MEDIUM BM TODAY, HEART HEALTHY DIET, AT PT BEDSIDE. PT AND DO NOT FEEL COMFORTABLE WITH PT DISCHARGE AT THIS TIME. DR. COHN WAS CONTACT CONCERNING PT AND THOUGHTS OF DISCHARGE AT THIS TIME AND PT REQUEST TO HAVE SOMETHING FOR ACID REFLUX. FALL PRECAUTIONS IN PLACE, WILL CONTINUE TO MONITOR.
--- NOTE | 2020-06-24 04:11 | NUR ---
RECEIVED CARE OF THIS PAITENT AT 1900. PATIENT ALERT AND ORIENTED X4. REMAINS ON BEDREST FOR THIS SHIFT. HAS 2 PIV'S, ONE IN EACH WRIST. RECEIVES SCHEDULED PAIN MED. RATES PAIN AT A 1 OR 2. SLEPT MOST OF NIGHT.
[2020-06-24 08:23] VITALS: BP 184/98
[2020-06-24 12:15] LABS: M-SPIKE Not Observed g/dL (Not Observed)
[2020-06-24] MEDS ORDERED: MEDROLDOSEPACK PO ×2 (12:22→16:53)
--- NOTE | 2020-06-24 12:59 | NUR ---
PATIENT ALERT XS 4. TO DISCHARGE HOME TO P/U AT 4:30. PT TOOK AM MEDS AND ATE BREAKFAST. PATIENT UP WALKING THE HALLS WITH THERAPY. STATES NO PAIN AND NO RESP DISTRESS NOTED.
--- NOTE | 2020-06-24 13:11 | NUR ---
on-going assessment: CM REVIEWED CHART AND SPOKE WITH ATTENDING. PT ORIGINALLY WANTED TO STAY IN THE HOSPITAL DUE TO STATING HIS IS OUT OF TOWN AND WILL BE BACK TOMORROW. CM DISCUSSED THAT PT HAS ORDERS TO DISCHARGE HOME TODAY HOME WITH HOME HEALTH AND THAT INSURANCE IS NOT APPROVING. DONNA REACHED OUT TO PATIENTS JUAN TO DISCUSS AND SHE REPORTS SHE IS AT A DOCTORS APPOINTMENT A COUPLE HOURS AWAY BUT CAN DRIVE BACK AND BE HERE AROUND 430-5PM THIS EVENING TO PICK HIM UP. DONNA NOTIFIED BEDSIDE RN. PT IS AGREEABLE. DONNA NOTIFIED [facility] HH OF DISCHARGE TODAY AND FAXED THEM D.C ORDERS. CASE CLOSED.
[2020-06-24 16:53] VITALS: BP 139/70
[2020-06-24] MEDS ORDERED: LIDOPATCH1 EACH TRANSDERM (16:53)
--- NOTE | 2020-06-24 17:48 | NUR ---
DOCTOR CALLED RX TO [facility]
== END 2020-06-24 18:02 | disposition home health service (06) | DRG 552 ==
LOC: ER 16:26 → EROBS 20:41 → 4S 20:41
PROVIDERS: Physician Assistant; ADMIT Internal Medicine; ATTEND Internal Medicine
DX: M51.36 Other intervertebral disc degeneration, lumbar region (principal); M17.0 Bilateral primary osteoarthritis of knee; I48.91 Unspecified atrial fibrillation; C76.40 Malignant neoplasm of unspecified upper limb; N28.89 Other specified disorders of kidney and ureter; N28.1 Cyst of kidney, acquired; N40.0 Benign prostatic hyperplasia without lower urinary tract symptoms; E78.5 Hyperlipidemia, unspecified; I50.9 Heart failure, unspecified; Z96.652 Presence of left artificial knee joint; G47.00 Insomnia, unspecified; M16.0 Bilateral primary osteoarthritis of hip; I11.0 Hypertensive heart disease with heart failure; Z98.42 Cataract extraction status, left eye; Z98.41 Cataract extraction status, right eye; Z95.0 Presence of cardiac pacemaker; Z87.891 Personal history of nicotine dependence; Z80.42 Family history of malignant neoplasm of prostate; Z79.01 Long term (current) use of anticoagulants; Z90.49 Acquired absence of other specified parts of digestive tract
CPT/HCPCS: 10195

== ENCOUNTER → 2020-09-14 | Outpatient (CLI) | payer OTHER ==
[~2020-09-14] MED LIST changes: +B-125000 MC1 PO; +LIDOPATCH1 EACH TRANSDERM; +MEDROLDOSEPACK PO
== END ==
LOC: SJCVC 13:39
PROVIDERS: ATTEND Internal Medicine Cardiovascular Disease
DX: R94.31 Abnormal electrocardiogram [ECG] [EKG] (principal); I42.8 Other cardiomyopathies; I42.9 Cardiomyopathy, unspecified; I48.20 Chronic atrial fibrillation, unspecified; I25.10 Atherosclerotic heart disease of native coronary artery without angina pectoris; G47.33 Obstructive sleep apnea (adult) (pediatric); I10 Essential (primary) hypertension; K21.9 Gastro-esophageal reflux disease without esophagitis; Z95.810 Presence of automatic (implantable) cardiac defibrillator; Z79.899 Other long term (current) drug therapy; Z87.891 Personal history of nicotine dependence

== ENCOUNTER → 2021-03-29 | Outpatient (CLI) | payer OTHER | LOC: SJCVC 11:15 | PROVIDERS: ATTEND Internal Medicine Cardiovascular Disease | DX: I42.8 Other cardiomyopathies (principal); I48.20 Chronic atrial fibrillation, unspecified; E78.5 Hyperlipidemia, unspecified; I10 Essential (primary) hypertension; G47.33 Obstructive sleep apnea (adult) (pediatric); I25.10 Atherosclerotic heart disease of native coronary artery without angina pectoris; K21.9 Gastro-esophageal reflux disease without esophagitis; Z90.49 Acquired absence of other specified parts of digestive tract; Z95.810 Presence of automatic (implantable) cardiac defibrillator; Z79.899 Other long term (current) drug therapy; Z87.891 Personal history of nicotine dependence ==

== ENCOUNTER → 2021-11-02 | Outpatient (CLI) | payer OTHER | LOC: SJCVC 14:15 | PROVIDERS: ATTEND Internal Medicine Cardiovascular Disease | DX: I49.5 Sick sinus syndrome (principal); I48.20 Chronic atrial fibrillation, unspecified; I42.8 Other cardiomyopathies; I10 Essential (primary) hypertension; E78.5 Hyperlipidemia, unspecified; G47.33 Obstructive sleep apnea (adult) (pediatric); K21.9 Gastro-esophageal reflux disease without esophagitis; Z95.810 Presence of automatic (implantable) cardiac defibrillator; Z79.899 Other long term (current) drug therapy; Z87.891 Personal history of nicotine dependence; Z72.89 Other problems related to lifestyle ==